=== PATIENT | male | born 1975 | race Caucasian/White ===

== ENCOUNTER 2019-11-23 13:54 | Outpatient (CLI) | payer MEDICARE | END 2019-11-23 23:59 | disposition home or self-care (01) | LOC: RAD 13:54 | DX: R51 Headache (principal) | CPT/HCPCS: 70150-TC ==

== ENCOUNTER 2020-08-19 18:12 | Emergency (ER) | payer MEDICARE, OTHER ==
[~2020-08-19] VITALS: Ht 182.9 cm; Wt 97.5 kg
--- NOTE | 2020-08-19 18:16 | NUR ---
called for triage not in the waiting room
[2020-08-19 18:21] VITALS: BP 135/81
[2020-08-19] MEDS ORDERED: IVERMECTIN 3 MG TABLET PO ONE (18:30)
== END 2020-08-19 19:22 | disposition home or self-care (01) ==
LOC: ER 18:17
DX: R21 Rash and other nonspecific skin eruption (principal)

== ENCOUNTER 2020-09-14 07:20 | Emergency (ER) | payer MEDICARE, OTHER ==
[~2020-09-14] VITALS: Ht 182.9 cm; Wt 113.4 kg
--- NOTE | 2020-09-14 07:35 | NUR ---
bib self C/O HEADACHE AND DIFFICULTY BREATHING SINCE LAST NIGHT. vs checked. stable. seen by
[2020-09-14] MEDS ORDERED: ACETAMINOPHEN ES 500 MG TABLET ONE (07:42)
--- NOTE | 2020-09-14 07:45 | NUR ---
pt left before tylenol was about to be administered. left without notifying staff. and left without dc instructions as well as prescription. made aware
[2020-09-14] MEDS ORDERED: ACETAMINOPHEN ES 500 MG TABLET PO ONE (08:00)
[2020-09-14 08:09] VITALS: BP 120/73
== END 2020-09-14 08:10 | disposition left against medical advice (07) ==
LOC: ER 07:22
DX: R51.9 Headache, unspecified (principal); R06.02 Shortness of breath; Z59.0 Homelessness

== ENCOUNTER 2020-12-24 03:53 | Emergency (ER) | payer MEDICARE, OTHER ==
[~2020-12-24] VITALS: Ht 180.3 cm; Wt 86.2 kg
[2020-12-24 04:03] VITALS: BP 105/70
[2020-12-24] MEDS ORDERED: ACETAMINOPHEN ES 500 MG TABLET PO ONE (05:30)
[2020-12-24] MEDS ORDERED: ACETAMINOPHEN ES 500 MG TABLET ONE (05:35)
== END 2020-12-24 06:22 | disposition home or self-care (01) ==
LOC: ER 03:55
DX: M79.10 Myalgia, unspecified site (principal); M79.605 Pain in left leg; M79.604 Pain in right leg; G89.29 Other chronic pain; F17.200 Nicotine dependence, unspecified, uncomplicated; Z59.0 Homelessness

== ENCOUNTER → 2021-10-05 | Emergency (ER) | payer MEDICARE, OTHER ==
[~2021-10-05] VITALS: Ht 182.9 cm; Wt 91.2 kg
[~2021-10-05] MED LIST: ACETAMINOPHEN ES 500 MG TABLET ONE; ACETAMINOPHEN ES 500 MG TABLET PO ONE; CYCL5TAB PO; CYCLOBENZAPRINE 10 MG TABLET ONE; CYCLOBENZAPRINE 10 MG TABLET PO ONE; IBUP-1957 PO
--- NOTE | 2021-10-05 04:58 | NUR ---
RIMMA 860 FROM [address]REETS FOUND OUTSIDE 04/15 C/O GEN BODY PAIN . BREATHING EVEN AND UNLABORED ALL V/S STABLE. URINE COLLECTED AND SENT TO LAB.
--- NOTE | 2021-10-05 05:39 | NUR ---
Patient discharged to home in stable condition. Written and verbal after care instructions given. Patient verbalizes understanding of instruction.
[2021-10-05 05:41] VITALS: BP 136/81
--- NOTE | 2021-10-05 05:41 | NUR ---
Patient discharged to home in stable condition. Written and verbal after care instructions given. Patient verbalizes understanding of instruction. Pt ambulatory with a steady gait
== END | disposition home or self-care (01) ==
LOC: ER 04:40
DX: M79.10 Myalgia, unspecified site (principal); R55 Syncope and collapse; F17.290 Nicotine dependence, other tobacco product, uncomplicated; Z79.1 Long term (current) use of non-steroidal anti-inflammatories (NSAID); Z79.899 Other long term (current) drug therapy
CPT/HCPCS: 71045-TC

== ENCOUNTER 2022-07-08 20:00 | Inpatient (IN) | payer MEDICARE, OTHER ==
[~2022-07-08] VITALS: Ht 182.9 cm; Wt 76.7 kg
[~2022-07-08 20:00] MED LIST changes: -ACETAMINOPHEN ES 500 MG TABLET ONE; -ACETAMINOPHEN ES 500 MG TABLET PO ONE; -CYCLOBENZAPRINE 10 MG TABLET ONE; -CYCLOBENZAPRINE 10 MG TABLET PO ONE
--- NOTE | 2022-07-08 20:21 | NUR ---
bibra83 from [employer] station c/o L hand swelling, redness and pain x 2 days. Pt A/ox3. Tolerating r/a well with no SOB. Connected pt to POX and monitor.
[2022-07-08] MEDS ORDERED: KETOROLAC TROMETHAMINE INJ 30 MG/ML VIAL IV ONE (21:00)
[2022-07-08] MEDS ORDERED: MORPHINE SULFATE INJ 2 MG/ML DISP.SYRIN IV ONE (21:00)
[2022-07-08] MEDS ORDERED: ASPIRIN 81 MG TAB.CHEW PO ONE (21:00)
[2022-07-08] MEDS ORDERED: ONDANSETRON HCL/PF 4 MG/2 ML VIAL IVP ONE (21:00)
[2022-07-08] MEDS ORDERED: IV NS 0.9% 1,000 ML BAG IV ONE (21:00)
--- NOTE | 2022-07-08 21:09 | NUR ---
FUNMI ESTES, ON THE PHONE WITH DR YUNG,
--- NOTE | 2022-07-08 21:13 | NUR ---
DR ARRIOLA ON THE PHONE WITH DR LUDA SANTOS
--- NOTE | 2022-07-08 21:26 | NUR ---
RAC #18G S/L BLOOD AND COVID ANTIGEN SWAB COLLECTED AND SENT TO LAB
[2022-07-08] MEDS ORDERED: VANCOMYCIN 1 GM in IV D5W 250 ML IV ONE (21:30)
[2022-07-08] MEDS ORDERED: PIPERACILLIN /TAZOBACTAM 3.375 G in IV D5W 50 ML IV ONE (21:30)
[2022-07-08] MEDS ORDERED: ONDANSETRON HCL/PF 4 MG/2 ML VIAL ONE (21:48)
[2022-07-08] MEDS ORDERED: KETOROLAC TROMETHAMINE 15 MG/ML VIAL ONE (21:48)
[2022-07-08] MEDS ORDERED: MORPHINE SULFATE INJ 4 MG/ML DISP.SYRIN ONE (21:49)
[2022-07-08] MEDS ORDERED: VANCOMYCIN 1 GM VIAL ONE (21:49)
[2022-07-08] MEDS ORDERED: PIPERACILLIN /TAZOBACTAM 3.375 G VIAL IV ONE (21:49)
[2022-07-08] MEDS ORDERED: ASPIRIN 81 MG TAB.CHEW ONE (21:49)
[2022-07-08 21:53] LABS: BASOPHILS % (AUTO) 0.5 % (0.0-2.0); EOSINOPHILS % (AUTO) 1.7 % (0.0-6.0); HEMATOCRIT 36 % (39-51); HEMOGLOBIN 11.5 g/dL (13.5-17.5); LYMPHOCYTES # (AUTO) 1.6 K/uL (0.8-4.8); LYMPHOCYTES % (AUTO) 21.8 % (20.0-44.0); MEAN CORPUSCULAR HGB CONC 32 g/dl (31.0-36.0); MEAN CORPUSCULAR VOLUME 73 fL (80-96); MONOCYTES # (AUTO) 0.9 K/uL (0.1-1.30); NEUTROPHILS # (AUTO) 4.6 K/uL (1.8-8.9); PLATELET COUNT (AUTO) 320 K/uL (150-450); RED BLOOD CELL COUNT(AUTO) 4.89 MIL/uL (4.5-6.0); WHITE BLOOD COUNT (AUTO) 7.2 K/uL (4.3-11.0)
[2022-07-08 22:35] LABS: CARBON DIOXIDE 27 mmol/L (21-32); CHLORIDE 101 mmol/L (98-107); CREATININE 1.2 mg/dL (0.6-1.3); GLUCOSE 126 mg/dL (74-106); POTASSIUM 3.6 mmol/L (3.5-5.1); SODIUM SERUM 136 mmol/L (136-145); UREA NITROGEN, BLOOD 18 mg/dL (7-18)
[2022-07-08 22:40] LABS: ALANINE AMINOTRANSFERASE 51 U/L (12-78); ALBUMIN 3.4 g/dL (3.4-5.0); ALKALINE PHOSPHATASE 114 U/L (46-116); ASPARTATE AMINOTRANSFERASE 41 U/L (15-37); BILIRUBIN,DIRECT 0.5 mg/dL (0.0-0.2); BILIRUBIN,TOTAL 0.9 mg/dL (0.2-1.0); TOTAL PROTEIN, SERUM 7.8 g/dL (6.4-8.2)
[2022-07-08 23:43] LABS: BASOPHILS % (MANUAL) 0 % (0.0-2.0); EOSINOPHILS % (MANUAL) 1 % (0-4); LYMPHOCYTES % (MANUAL) 23 % (16-48); MONOCYTES % (MANUAL) 8 % (0-11.0); NEUTROPHILS % (MANUAL) 68 (42-76)
[2022-07-09] MEDS ORDERED: FUROSEMIDE 20 MG/2 ML VIAL ONE (01:46)
--- NOTE | 2022-07-09 01:59 | NUR ---
CALLED [facility] AT SPOKE TO ИРИНА FOR POSSIBLE TRANSFER FOR HIGHER LEVEL OF CARE FOR TENOSYNOVITIS. PER ИРИНА THEY'RE AT CAPACITY.
[2022-07-09] MEDS ORDERED: FUROSEMIDE 20 MG/2 ML VIAL IV ONE (02:00)
--- NOTE | 2022-07-09 02:05 | NUR ---
CALLED [facility] AT [phone] AD SPOKE TO WELDING EQUIPMENT SALES REPRESENTATIVE 55. [facility] AND [facility] ARE AT CAPACITY
--- NOTE | 2022-07-09 02:12 | NUR ---
CALLED [facility] AT [phone] AND SPOKE TO MACARENA. [facility] IS THE ONLY ONE WITH HAND SURGON AND THEY'RE ONLY TAKING PRIORITY CASES. WAS ADVISED TO CALL BACK IN 12-24 HOURS FOR POSSIBL AVAILABLE BED.
--- NOTE | 2022-07-09 04:33 | NUR ---
called [facility] and spoke to Nuzhat . per her the only hospital with hand surgon is [facility] which is at capacity
--- NOTE | 2022-07-09 04:38 | NUR ---
CALLED [facility]. NO HAND SURGON
--- NOTE | 2022-07-09 04:50 | NUR ---
SPOKE TO GRAHAM AT [facility] AND FAXED THE CLINICALS TO [phone]
--- NOTE | 2022-07-09 06:14 | NUR ---
TROPONIN 176
[2022-07-09] MEDS ORDERED: IOHEXOL-300 100 ML VIAL IV ONE (07:58)
[2022-07-09] MEDS ORDERED: PIPERACILLIN /TAZOBACTAM 3.375 G in IV D5W 50 ML IV ONE (08:00)
--- NOTE | 2022-07-09 08:32 | NUR ---
called nursing supervisor polishing for tele bed.
[2022-07-09] MEDS ORDERED: [UNRECOGNIZED DRUG - REMARK] PO (08:38)
--- NOTE | 2022-07-09 10:10 | NUR ---
room 320-2
--- NOTE | 2022-07-09 10:43 | NUR ---
report given to Dulce Maria SIMMONS to continue care.
--- NOTE | 2022-07-09 11:22 | NUR ---
wheeled patient via gurney accompanied by rn and emt in no distress. RN assigned at bedside to assume care.
[2022-07-09] MEDS ORDERED: ONDANSETRON HCL/PF 4 MG/2 ML VIAL IVP PRN (11:30)
[2022-07-09] MEDS ORDERED: MAGNESIUM HYDROXIDE 30 ML UDC PO PRN (11:30)
[2022-07-09] MEDS ORDERED: Z GUARD REMEDY 4 OZ OINT TP PRN (11:30)
[2022-07-09] MEDS ORDERED: MAG HYDROX/AL HYDROX/SIMETH 30 ML UDC PO PRN (11:30)
[2022-07-09] MEDS: FUROSEMIDE 40 MG/4 ML VIAL IV SCH ×2 (11:30→16:07)
[2022-07-09] MEDS: POTASSIUM CHLORIDE 20 MEQ TAB.PRT.SR PO SCH ×3 (12:30→14:41)
[2022-07-09] MEDS: VANCOMYCIN 1 GM in IV D5W 250ml IV SCH ×2 (12:55→23:18)
--- NOTE | 2022-07-09 13:00 | NUR ---
RN ADMITTING NOTES PATIENT ARRIVED TO UNIT @1110, VIA GURNEY ACCOMPANIED BY 2 ER STAFF. PATIENT ABLE TO AMBULATE TO THE BED BY HIMSELF. PATIENT DOES NOT WISH TO CHANGE INTO GOWN, KEEPING HIS OWN CLOTHES ON. ORIENTED TO STAFF AND UNIT, AND HOW TO USE THE CALL LIGHT. PATIENT A/Ox4, ABLE TO MAKE NEEDS KNOWN. ON ROOM AIR, NO S/S OF RESPIRATORY DISTRESS. PATIENT HAS IV ACCESS R AC #18G. INTACT AND PATENT. PATIENT DID NOT ALLOW PHOTOS TO BE TAKEN OF SWELLING AREAS. FULL BODY ASSESSMENT COMPLETED: CARDIAC SOUND WNL, LUNG SOUNDS WNL, GI/ PATIENT VOIDED AFTER ARRIVING TO UNIT, SKIN IS INTACT, BUT PATIENT HAS CELLULITUS OF HIS [place]. AFETY MEASURES IN PLACE: BED LOCKED AND IN LOWEST POSITION, HOB ELEVATED, SIDE RAILS UP x2, CALL LIGHT WITHIN REACH. WILL CONTINUE TO MONITOR. Addendum: 07/09/22 at 1651 by KLAUS VALLES RN ADDENDUM: ON TELE MONITORING SHOWING SINUS RHYTHM WITH BBBs HR 90
[2022-07-09 16:00] VITALS: BP 110/67
--- NOTE | 2022-07-09 18:06 | NUR ---
INITIAL FINDINGS OF ECHOCARDIOGRAM SHOWED EF15-20%~ WITH SMALL PERICARDIAL EFFUSION AND PLEURAL EFFUSION. INFORMED TROY ENRIQUE OF PRELIMINARY RESULTS.
--- NOTE | 2022-07-09 19:09 | NUR ---
METEOROLOGICAL TECHNICIAN CLOSING NOTES PATIENT AWAKE IN BED. A/Ox4. ON ROOM AIR, NO S/S OF RESPIRATORY DISTRESS. ON TELE MONITORING SHOWING SINUS RHYTHM/DANIELLE HR 60. IV ACCESS RENE #18 WITH NS RUNNING @100 ML/HR. INTACT AND PATENT. AMBULATORY, HAS BATHROOM PRIVILEGE. SKIN INTACT. ALL PRESCRIBED MEDICATION ADMINISTERED. SAFETY MEASURES MAINTAINED: BED LOCKED AND IN LOWEST POSITION, HOB ELEVATED, SIDE RAILS UP x2, CALL LIGHT WITHIN REACH. WILL ENDORSE TO NEXT SHIFT ANY MOISES.
--- NOTE | 2022-07-09 19:35 | NUR ---
SUPERIOR COURT CLERK NOTES RECEIVED ON BED,HOMELESS, SOUND ASLEEP,BREATHING EASY,NO SOB,SALINE LOCK RIGHT AC INTACT AND PATENT,FLUSHABLE BOTH PORTS.NOTED LEFT UPPER ARM REDNESS.CALL LIGHT IN REACH,WILL CONTINUE TO MONITOR STATUS.
[2022-07-09 20:00] VITALS: BP 120/73
[2022-07-09 20:12] VITALS: BP 109/66
--- NOTE | 2022-07-09 21:56 | NUR ---
WOOD GETTER NOTES ST WITH BBB-102 ON TELE MONITOR.
[2022-07-09 23:47] VITALS: BP 112/60
[2022-07-10] MEDS: ACETAMINOPHEN 325 MG TABLET PO PRN ×2 (01:25→22:43)
--- NOTE | 2022-07-10 01:25 | NUR ---
FLOORING GRADER NOTES C/O HEADACHE,3/10 ON PAIN SCALE,TYLENOL 650MG PO GIVEN ORDERED FOR MILD PAIN.VITAL SIGNS STABLE.
[2022-07-10 05:35] VITALS: BP 103/77
[2022-07-10 06:00] LABS: BASOPHILS % (AUTO) 0.5 % (0.0-2.0); EOSINOPHILS % (AUTO) 2.2 % (0.0-6.0); HEMATOCRIT 34 % (39-51); LYMPHOCYTES # (AUTO) 1.5 K/uL (0.8-4.8); LYMPHOCYTES % (AUTO) 26.8 % (20.0-44.0); MEAN CORPUSCULAR HGB CONC 32 g/dl (31.0-36.0); MEAN CORPUSCULAR VOLUME 73 fL (80-96); MONOCYTES # (AUTO) 0.8 K/uL (0.1-1.30); NEUTROPHILS # (AUTO) 3.1 K/uL (1.8-8.9); NEUTROPHILS % (AUTO) 56.5 % (43.0-81.0); PLATELET COUNT (AUTO) 267 K/uL (150-450); RED BLOOD CELL COUNT(AUTO) 4.65 MIL/uL (4.5-6.0); WHITE BLOOD COUNT (AUTO) 5.5 K/uL (4.3-11.0)
--- NOTE | 2022-07-10 06:38 | NUR ---
BUSINESS DEVELOPMENT MANAGER NOTES SLEEP WELL AT NIGHT,HEADACHE IMPROVED,IV ABX ADMINISTERED,NO CHEST PAIN PRESENTED,CALL LIGHT IN REACH,NEEDS ATTENDED.
[2022-07-10 07:03] LABS: ALBUMIN 2.9 g/dL (3.4-5.0); CALCIUM, SERUM 8.8 mg/dL (8.5-10.1); CREATININE 1.2 mg/dL (0.6-1.3); MAGNESIUM 1.8 mg/dL (1.8-2.4); PHOSPHORUS 3.7 mg/dL (2.5-4.9); POTASSIUM 3.6 mmol/L (3.5-5.1); TOTAL PROTEIN, SERUM 6.9 g/dL (6.4-8.2)
--- NOTE | 2022-07-10 07:30 | NUR ---
RN Opening Note PT AOx4, able to express his own concerns. Patient made aware of plan of care, pt agrees. Left AC IV with no signs of infiltration, no pain reported at site. Will administer medications as prescribed, provide care as needed and monitor throughout shift. All safety precautions taken, call light and table within reach, bed at lowest position.
[2022-07-10 08:00] VITALS: BP 128/70
[2022-07-10] MEDS: FUROSEMIDE 40 MG/4 ML VIAL IV SCH ×3 (08:58→17:00)
[2022-07-10] MEDS: ASPIRIN 81 MG TAB.CHEW PO SCH (08:58)
[2022-07-10] MEDS ORDERED: FUROSEMIDE 20 MG/2 ML VIAL IV SCH (09:00)
[2022-07-10] MEDS: CARVEDILOL 3.125 MG TABLET PO SCH ×2 (09:00→21:00)
[2022-07-10] MEDS: POTASSIUM CHLORIDE 20 MEQ TAB.PRT.SR PO SCH ×3 (09:45→12:22)
[2022-07-10] MEDS: VANCOMYCIN 1 GM in IV D5W 250ml IV SCH (11:42)
[2022-07-10 12:00] VITALS: BP 107/72
--- NOTE | 2022-07-10 12:15 | NUR ---
RN Accepting Report Pt was transferred back to unit, brought by surgery team. Pts Vitals Signs Stable with blood pressure elevated, will continue to monitor. Pressure band in place with 17cc of air, no signs of bleed, will continue to monitor.. Patient states he is "feeling ok but nauseous". Administered Zofran as ordered. All safety precautions taken, patient will be monitored following protocol, TR band will be monitored and pressure released following protocol. All safety precautions taken, call light and table within reach bed at lowest position.
[2022-07-10] MEDS: TRIUMEQ PO SCH (13:12)
[2022-07-10 16:00] VITALS: BP 98/69
--- NOTE | 2022-07-10 18:47 | NUR ---
RN Closing Report. PT AOx4 able to express his own concerns. Administered medications as ordered, and provided care as needed. Patient shared he is interested in going to [place] to a penitentiary. He will speak with Meat Team Member tomorrow and arrange d/c services [place]. All safety precautions taken, call light and table within reach, bed at lowest position.
[2022-07-10] MEDS ORDERED: FUROSEMIDE 40 MG/4 ML VIAL IV SCH (19:00)
[2022-07-10 20:00] VITALS: BP 90/58
--- NOTE | 2022-07-10 20:11 | NUR ---
RN OPENING NOTES RECEIVED PT IN BED, ASLEEP, AWAKENS TO VERBAL STIMULI. AOx4, ABLE TO MAKE NEEDS KNOWN. ON RA AND TOLERATING WELL. NO SOB NOTED. NO S/SX OF RESPIRATORY DISTRESS NOTED. IV ACCESS IN RFA #20G. IV IS INTACT, PATENT, AND FLUSHING WELL. SAFETY PRECAUTIONS IN PLACE: BED IN LOWEST, LOCKED POSITION, SIDERAILS UPx2, AND BRAKES ON. TABLE AND CALL LIGHT WITHIN REACH. ALL NEEDS MET AT THIS TIME.
[2022-07-10] MEDS: MUPIROCIN OINT 2% 22 GM TUBE NS SCH (21:22)
--- NOTE | 2022-07-10 22:43 | NUR ---
RN NOTES ADMINISTERED TYLENOL FOR HEADACHE PER PT REQUEST.
[2022-07-10] MEDS: VANCOMYCIN 1.25 GM in IV D5W 250 ML IV SCH (23:57)
[2022-07-11] VITALS: BP 90/56
--- NOTE | 2022-07-11 00:04 | NUR ---
RN NOTES HUNG VANCOMYCIN ANTIBIOTICS BUT PATIENT BECAME AGGRESSIVE SAYING "I AM ALTERED! IT IS MAKING ME GROGGY. IT IS TOO MUCH FOR MY BRAIN!" EXPLAINED TO PATIENT THAT ANTIBIOTICS DO NOT MAKE PATIENT GROGGY. ALSO EXPLAINED THAT PHARMACIST TAKES INTO CONSIDERATION PT'S LABS TO ADJUST DOSE AND MAKE SURE IT'S NOT TOO HIGH OF A DOSAGE. PATIENT SAID "WE NEED TO WAIT 12 HOURS BETWEEN DOSES!" EXPLAINED THAT IT HAS BEEN 12 HOURS. PATIENT BECAME AGGRESSIVE AND STARTED TO YELL. ALSO YANKED ARM AWAY WHEN THE IV TUBING WAS GOING TO BE CONNECTED TO IV.
[2022-07-11] MEDS: NICOTINE PATCH (14MG) 14 MG PATCH.TD24 TD SCH ×2 (01:38→08:47)
--- NOTE | 2022-07-11 01:41 | NUR ---
RN NOTES PER PT "I AM HAVING MAJOR NICOTINE WITHDRAWALS. CAN I HAVE A NICOTINE PATCH?" CONTACTED GENERAL REPAIR MECHANIC, LIZZETTE SALAZAR, FOR NICOTINE PATCH. ORDERED 14 MG PATCH.
[2022-07-11 04:00] VITALS: BP 86/64
--- NOTE | 2022-07-11 06:51 | NUR ---
RN CLOSING NOTES PT IN BED, ASLEEP, AWAKENS TO VERBAL STIMULI. AOx4, ABLE TO MAKE NEEDS KNOWN. ON RA AND TOLERATING WELL. NO SOB NOTED. NO S/SX OF RESPIRATORY DISTRESS NOTED. IV ACCESS IN RENE #20G. IV IS INTACT, PATENT, AND FLUSHING WELL. ALL ORDERS CARRIED OUT. ALL NEEDS MET. PT KEPT CLEAN AND DRY. SAFETY PRECAUTIONS IN PLACE: BED IN LOWEST, LOCKED POSITION, SIDERAILS UPx2, AND BRAKES ON. TABLE AND CALL LIGHT WITHIN REACH. WILL ENDORSE TO ONCOMING SHIFT FOR MOISES.
[2022-07-11 07:25] LABS: BILIRUBIN,TOTAL 0.9 mg/dL (0.2-1.0); CREATININE 1.2 mg/dL (0.6-1.3); MAGNESIUM 1.7 mg/dL (1.8-2.4); PHOSPHORUS 3.5 mg/dL (2.5-4.9); POTASSIUM 3.3 mmol/L (3.5-5.1); TOTAL PROTEIN, SERUM 7.1 g/dL (6.4-8.2)
[2022-07-11 07:27] LABS: BASOPHILS % (AUTO) 0.6 % (0.0-2.0); EOSINOPHILS % (AUTO) 2.9 % (0.0-6.0); HEMATOCRIT 36 % (39-51); HEMOGLOBIN 11.3 g/dL (13.5-17.5); LYMPHOCYTES # (AUTO) 1.3 K/uL (0.8-4.8); LYMPHOCYTES % (AUTO) 24.1 % (20.0-44.0); MEAN CORPUSCULAR HGB CONC 32 g/dl (31.0-36.0); MEAN CORPUSCULAR VOLUME 73 fL (80-96); MONOCYTES # (AUTO) 0.8 K/uL (0.1-1.30); MONOCYTES % (AUTO) 14.2 % (2.0-12.0); NEUTROPHILS # (AUTO) 3.2 K/uL (1.8-8.9); NEUTROPHILS % (AUTO) 58.2 % (43.0-81.0); PLATELET COUNT (AUTO) 300 K/uL (150-450); RED BLOOD CELL COUNT(AUTO) 4.86 MIL/uL (4.5-6.0); WHITE BLOOD COUNT (AUTO) 5.5 K/uL (4.3-11.0)
--- NOTE | 2022-07-11 07:30 | NUR ---
RN Receiving Report. PT AOx4, able to express his own concerns. Patient shows no signs of distress or discomfort. Discussed plan of care and plan of care with patient and he verbalized agreement. Patient states his arm is feeling better. Patient states he wants to discharge to a center. All safety precautions taken with patient, call light and table within reach, bed at lowest position. Will continue to monitor throughout shift and provide care as needed.
[2022-07-11 08:00] VITALS: BP 99/67
[2022-07-11] MEDS ORDERED: MAGNESIUM OXIDE 400 MG TABLET PO SCH (08:00)
[2022-07-11] MEDS ORDERED: POTASSIUM CHLORIDE 20 MEQ TAB.PRT.SR PO ONE (08:00)
[2022-07-11] MEDS: ASPIRIN 81 MG TAB.CHEW PO SCH (08:46)
[2022-07-11] MEDS: MUPIROCIN OINT 2% 22 GM TUBE NS SCH ×2 (08:46→21:11)
[2022-07-11] MEDS: TRIUMEQ PO SCH (08:46)
[2022-07-11] MEDS: SPIRONOLACTONE 25 MG TABLET PO SCH (08:47)
[2022-07-11 11:39] VITALS: BP 96/62
--- NOTE | 2022-07-11 11:54 | NUR ---
WOUND CARE CONSULT: PT SEEN FOR LEFT ARM SWELLING. SWELLING HAS RESOLVED. WILL SEE PRN.
[2022-07-11] MEDS: VANCOMYCIN 1.25 GM in IV D5W 250 ML IV SCH ×3 (12:12)
[2022-07-11 16:00] VITALS: BP 93/59
--- NOTE | 2022-07-11 19:50 | NUR ---
RN Closing Note RN Closing Report. PT able to express his concerns, AOx4. Patient remained stable throughout shift. No incidents, all safety precautions taken call light and table within reach. IV with no signs of infiltration care provided as needed, medications administered as prescribed. Patient had evaluation with life vest rep., will endorse report to night nurse for care continuity.
--- NOTE | 2022-07-11 19:55 | NUR ---
RESEARCH PROGRAM MANAGER OPENING NOTES RECEIVED PT IN BED. A/O X 4 AND ABLE TO MAKE NEEDS KNOWN. NO DYSPNEA OR SOB NOTED. SpO2= 98% RA.TELE MONITOR SHOWS SINUS RHYTHM WITH BBB AT 99 BPM. IV ACCESS TO RAC #18G. IV IS INTACT, PATENT, AND FLUSHING WELL. SAFETY PRECAUTIONS IN PLACE: BED IN LOWEST AND LOCKED POSITION, SIDE RAILS UP x 2, AND BRAKES ON. TABLE AND CALL LIGHT WITHIN REACH. WILL CONTINUE TO MONITOR.
[2022-07-11 20:00] VITALS: BP 90/62
[2022-07-12] MEDS: VANCOMYCIN 1.25 GM in IV D5W 250 ML IV SCH ×2
--- NOTE | 2022-07-12 03:08 | NUR ---
PATIENT PULLED OFF HIS LEADS AND REFUSED TO ALLOW THE RN AND RESEARCH CHEF TO PUT THEM BACK ON HIM. HE KEPT SCREAMING, "DON'T TOUCH ME!" AND "GET AWAY FROM ME!"
--- NOTE | 2022-07-12 06:00 | NUR ---
PATIENT REFUSED FOR ADULT CROSSING GUARD TO COVER HIM WITH A CLEAN SHEET.
--- NOTE | 2022-07-12 06:15 | NUR ---
OUTPATIENT PROGRAM COORDINATOR CLOSING NOTE PATIENT YELLING OUT AND SCREAMING ALL NIGHT DURING HIS SLEEP. HE RIPPED OFF HIS LEADS AND TELE MONITOR BOX AROUND 0300 AND REFUSED TO ALLOW RN OR CLAIMS ANALYST TO REPLACE THEM. LAST KNOWN RHYTHM WAS NSR AT 99 BPM. CURRENTLY PATIENT IS ON STANDBY FOR TELE. PATIENT IS ASLEEP IN BED CURRENTLY AND ABLE TO MAKE NEEDS KNOWN. IV ACCESS IN RAC #18G AND IS INTACT, PATENT. NO DYSPNEA OR SOB NOTED. SpO2= 98% RA. SAFETY PRECAUTIONS IN PLACE: BED IN LOWEST, LOCKED POSITION AND SIDE RAILS UP x 2. CALL LIGHT AND BEDSIDE TABLE WITHIN REACH.BED ALARM AND BRAKES ARE ON. WILL ENDORSE TO NEXT SHIFT FOR MOISES.
[2022-07-12 06:42] LABS: CALCIUM, SERUM 8.9 mg/dL (8.5-10.1); CREATININE 0.6 mg/dL (0.6-1.3); POTASSIUM 4.5 mmol/L (3.5-5.1)
--- NOTE | 2022-07-12 07:25 | NUR ---
RN OPENING NOTES RECEIVED PATIENT AWAKE IN BED. A/O X4, VERBALLY RESPONSIVE. NO SIGNS OF ACUTE DISTRESS NOTED. DENOIES ANY PAIN AT THIS TIME. ON ROOM AIR, NO SOB NOTED, BREATHING EVEN AND UNLABORED. NOTED WITH IV ACCESS ON RIGHT AC #18G, INTACT AND PATENT, SALINE LOCKED. TELE ON STANDBY. SAFETY MEASURE IN PLACE. BED IN LOWEST AND LOCKED POSITION. SIDE RAILS UP X2, CALL LIGHT PLACED WITHIN EASY REACH. WILL CONTINUE TO MONITOR PATIENT.
[2022-07-12] MEDS: SPIRONOLACTONE 25 MG TABLET PO SCH (08:24)
[2022-07-12] MEDS: ASPIRIN 81 MG TAB.CHEW PO SCH (08:24)
[2022-07-12] MEDS: TRIUMEQ PO SCH (08:24)
[2022-07-12] MEDS: NICOTINE PATCH (14MG) 14 MG PATCH.TD24 TD SCH (08:24)
[2022-07-12] MEDS: MUPIROCIN OINT 2% 22 GM TUBE NS SCH (08:30)
[2022-07-12 09:37] VITALS: BP 93/65
[2022-07-12] MEDS ORDERED: SPIR25TA6 PO (09:39)
--- NOTE | 2022-07-12 11:35 | NUR ---
SS consult : SS Consult requested for homelessness. The pt. is a 46-year-old male patient who came in for hand cellulitis. Upon SS consult, the pt. is Alert & Oriented x 4 and makes good eye contact. The pt. appears disheveled with elevated mood & affect. Pt.s speech and thought process are WNL. Pt. remained calm & cooperative throughout interview. Pt. Pt. denies SI/HI and denies hallucinations. Pt. denies any previous diagnosis of mental illness. SW explored pt.s living situation. Patient states he has been experiencing homelessness. SW explored pt.s drug & ETOH use. Pt. denies any drug or alcohol use. Pt. is ambulatory and independent with all his ADLs per pt. MARIE explored pt.s support system. Pt. states he has no support system. Plan: The pt. states eh wants to be discharged to self and [place] SW provided pt. with homeless and mental health resources, and he accepted them. Pt. signed homeless waiver and it was placed in the pt.s chart. MARIE provided tp. with TAP card and pt. expressed appreciation. MARIE notified the pt.s nurse. Year-round shelters: [facility] [place] [address] [place] [place] [address] ; [facility] [place] [address] [place] [address]; [facility] [id number] [facility]. [facility] [address] Hygiene: [facility] [address] [facility] ; [facility] [address] [facility] ; [facility] [address] [facility] . Food Resources: [facility] at [facility]- [address] [place]; Meet Each Need with Dignity ([facility]) [address] [place]; [facility] [address] [facility]; [facility] [address] [facility] [place]. Mental Health resources provided: [facility] [address] [place] [address] ; [facility] [employer] [address], [place] [address] ; [facility] [address] [address] ; [facility] [address] [place], [place] [id number] Healthcare Clinics: [facility] [address] [facility], [address] [place]. [place] ; [facility] [address] [facility] [address] [place] [address]; [facility] [address] [facility] [place] [address] 022) [phone] Counseling--[facility] [address] [facility] [address], [place] [address] (Specializes in in-depth psychotherapy for emotional distress: anxiety, depression, interpersonal conflicts, life transitions, childhood abuse) [facility] [address] [place] [address] (Assist with solving problem marital difficulties, separation & divorce, aging parents, & grief, chronic & terminal illness) [facility] [address] [place] [address] (Deal with loss & grief, anxiety, marital difficulties) Homebound/Mental Health Services [address] [place] [address] (Provide in-home mental services to people who are incapable of leaving their homes) [facility] Service[facility] [address] [place] [address] [facility] [address] [facility] [address] PSYCHIATRIC OUTPATIENT SERVICES [facility] Partial Hospitalization and Intensive Outpatient Program (Managed Care and [place] Only)[address]. [facility] [phone] [facility] Partial Hospitalization and Outpatient [address] [place], [place] [phone] [facility] Jpr[address] [facility]. [address] [place], [place] [phone] [facility] Partial Hospitalization and Outpatient [id number] [facility] Messi Cancino, [phone] Substance Abuse resources provided included: [facility] Substance Abuse Self-Helpline ([facility]) ; [facility] [address] [facility] [place] [address] ; [facility] [address] [facility] [address] ; [facility] [address] [facility] [address] ; [facility] [address] [facility] [phone] ; [facility] [address] [facility] [address] ; [facility] [address] [facility] [phone] ; [facility] Substance Abuse Helpline([facility] ; [facility] ; [facility] [place]; [facility] [place]; [facility] [place]; [facility] Messi Cancino; [facility]; [facility] [place]; [facility] [place]; [facility] [place]; Alcoholics Anonymous -[facility]; Rehan ; Marijuana Anonymous -[facility]; Narcotics Anonymous www.na.org;
--- NOTE | 2022-07-12 12:35 | NUR ---
PEANUT SORTER NOTE PATIENT DISCHARGED TODAY, GOING TO A DETENTION. PATIENT REMAINS AWAKE, ALERT AND ORIENTED X4, VERBALLY RESPONSIVE ABLE TO MAKE NEEDS KNOWN. IV ACCESS REMOVED, NO BLEEDING NOTED, PRESSURE DRESSING APPLIED TO SITE. ARM NAME BAND REMOVED. EXIT CARE FOLDER GIVEN TO PATIENT, DISCHARGE INSTRUCTIONS AND HEALTH TEACHINGS PROVIDED WITH VERBALIZATION OF UNDERSTANDING. PATIENT DISCHARGED WITH LIFEVEST ON. TAP CARD GIVEN TO PT BY SUSTAINABILITY COACH. PATIENT LEFT UNIT @1230 ACCOMPANIED BY ROYER BULLARD TO THE LOBBY. PT AMBULATORY. CN AWARE OF DISCHARGE.
== END 2022-07-12 12:25 | disposition home or self-care (01) | DRG 280 ==
LOC: ER 20:01 → TELE 07-09 10:23
PROVIDERS: ADMIT Internal Medicine; ATTEND Internal Medicine
DX: I11.0 Hypertensive heart disease with heart failure (principal); I21.A1 Myocardial infarction type 2; I50.23 Acute on chronic systolic (congestive) heart failure; I42.9 Cardiomyopathy, unspecified; Z59.00 Homelessness unspecified; Z20.822 Contact with and (suspected) exposure to COVID-19; R82.6 Abnormal urine levels of substances chiefly nonmedicinal as to source; I51.3 Intracardiac thrombosis, not elsewhere classified
CPT/HCPCS: 36415; 71045-TC; 73130-TC; 73201-TC; 80048-TC; 80053-TC; 80076-TC; 80202-TC; 83605-TC; 83735-TC; 83880; 84100-TC; 84484-TC; 85025-TC; 87040-TC; 87081-TC; 93307-TC; 94799-TC; C9803; G0378; G0480; J1885; J1940; J2270; J2405; J2543; J3370; J7040; J7060; Q9967